=== PATIENT | female | born 1980 | race Caucasian/White ===

== ENCOUNTER 2019-04-28 16:05 | Emergency (ER) | payer SELFPAY ==
[2019-04-28] MEDS ORDERED: Lidocaine 1% (PF) 30 ML VIAL ONE (16:33)
[2019-04-28] MEDS ORDERED: Lidocaine 1% PF 5 ML VIAL ONE (16:41)
[2019-04-28] MEDS ORDERED: Bacitracin 1 PK ONE (17:13)
== END 2019-04-28 17:20 | disposition home or self-care (01) ==
LOC: ERS 16:05
DX: L60.0 Ingrowing nail (principal); F32.9 Major depressive disorder, single episode, unspecified; F17.210 Nicotine dependence, cigarettes, uncomplicated
CPT/HCPCS: 11750; J2001